=== PATIENT | female | born 1975 | race Caucasian/White ===

== ENCOUNTER → 2016-12-15 | Outpatient (CLI) | payer BC ==
[~2016-12-15] MED LIST: BUPRTAB51 PO; LORA1TAB13 PO; VILA1TAB2 PO
--- NOTE | 2016-12-18 15:02 | MAMMOGRAPHY REPORT ---
BILATERAL DIGITAL SCREENING MAMMOGRAM TOMOSYNTHESIS WITH CAD: 12/15/2016 CLINICAL HISTORY: Routine screening. Patient has no complaints. TECHNIQUE: Breast tomosynthesis in addition to standard 2D mammography was performed. Current study was also evaluated with a Computer Aided Detection (CAD) system. COMPARISON: Comparison is made to exams dated: 12/10/2014 mammogram and 12/15/2015 mammogram - [facility]. BREAST COMPOSITION: The tissue of both breasts is heterogeneously dense, which may obscure small mas ses. FINDINGS: No suspicious masses, calcifications, or areas of architectural distortion are noted in ei ther breast. There has been no significant interval change compared to prior exams. Scattered bilater al benign-appearing calcifications are not significantly changed. IMPRESSION: ACR BI-RADS CATEGORY 2: BENIGN There is no mammographic evidence of malignancy. A 1 year screening mammogram is recommended. The pa tient will receive written notification of the results. Approximately 10% of breast cancers are not detected with mammography. A negative mammographic report should not delay biopsy if a clinically suggestive mass is present. Chapis Kelly M.D. ah/:12/15/2016 15:37:06 [employer] Field Technician: Aubrie TORRES(R)(M), [facility] letter sent: Normal 1/2 BI-RADS Code: ACR BI-RADS Category 2: Benign
== END | disposition home or self-care (01) ==
LOC: C.MAMM 08:44
PROVIDERS: ATTEND Family Medicine
DX: Z12.31 Encounter for screening mammogram for malignant neoplasm of breast (principal)

== ENCOUNTER 2023-10-15 20:54 | Observation (INO) ==
[2023-10-15] MEDS: SODIUM CHLORIDE 0.9% 1,000 ML IV ONE (21:32)
[2023-10-15 21:42] LABS: Alanine Aminotransferase 8 U/L (7-52); Albumin Globulin Ratio 2.1 (0.9-2); Albumin Level 5.1 gm/dl (3.4-5.0); Alkaline Phosphatase 54 U/L (34-104); Anion Gap 8 (3-11); Aspartate Aminotransferase 14 U/L (13-39); BUN Creatinine Ratio 24.5 (10-20); Bilirubin,Total 0.4 mg/dl (0.2-1.0); Blood Urea Nitrogen 24 mg/dl (6-23); Calcium 9.5 mg/dl (8.6-10.3); Carbon Dioxide 27 mmol/L (21-32); Chloride 103 mmol/L (98-107); Creatinine Clr Calc Pharmacy 67.5 ml/min; Est GFR (African American) 78.5 ml/min; Est GFR (Non-African American) 67.7 ml/min; Globulin 2.4 gm/dl (2.5-4.0); Glucose 130 mg/dl (70-99(Fasting)); Magnesium 1.9 mg/dl (1.7-2.4); Potassium 3.6 mmol/L (3.5-5.1); Sodium 138 mmol/L (136-145); Total Protein 7.5 gm/dl (6.0-8.3)
[2023-10-15 21:44] LABS: Basophils # (auto) 0.09 K/uL (0.00-0.20); Basophils % (auto) 1.1 %; Eosinophils # (auto) 0.15 K/uL (0.00-0.50); Eosinophils % (auto) 1.9 %; Hematocrit (blood only) 42.6 % (37.0-47.0); Hemoglobin 14.5 g/dl (12.0-16.0); Immature Granulocytes # (auto) 0.02 K/uL (0.01-0.20); Immature Granulocytes % (auto) 0.3 %; Lymphocytes # (auto) 3.75 K/uL (1.20-3.40); Lymphocytes % (auto) 47.9 %; Mean Corpuscular Hemoglobin 29.4 pg (25.0-34.0); Mean Corpuscular Volume 86.4 fL (80.0-100.0); Mean Platelet Volume 9.6 fL (9.4-12.4); Monocytes # (auto) 0.38 K/uL (0.11-0.59); Monocytes % (auto) 4.9 %; Neutrophils # (auto) 3.44 K/uL (1.40-6.50); Neutrophils % (auto) 43.9 %; Platelet Count 276 K/uL (130-400); RDW Coefficient of Variation 11.6 % (11.5-14.5); RDW Standard Deviation 36.9 fL (36.4-46.3); Red Blood Count 4.93 M/uL (4.20-5.40); White Blood Count 7.83 K/ul (4.8-10.8)
[2023-10-15 21:48] LABS: Troponin I High Sensitivity < 2.3 pg/ml (0-14)
[2023-10-15 21:55] LABS: D Dimer < 190 ug/L FEU (0-500); Partial Thromboplastin Time 26 Seconds (21-31); Prothrombin Time 11.3 Seconds (9.0-12.0)
--- NOTE | 2023-10-15 22:20 | Emergency Department Note ---
Impression & Plan Sinus tachycardia, Heart palpitations ED Provider Note HISTORY OF PRESENT ILLNESS: Patient is a 48-year-old female presenting with tachycardia and hypertension. Patient reports that over the last 2 weeks she has been having intermittent episodes in which it feels like her heart is racing and she is having palpitations. Reports that she has stopped drinking caffeine in the last week because she thought that was a trigger. She states that the episodes of tachycardia occur at random. She reports has been unable to workout in the last week secondary to any minimal amount of exertion causing her heart rate to go to 150 and her to feel lightheaded. States that tonight while getting ready for bed she started having some left-sided chest pain and it felt like her heart was racing. Her smart watch told her heart rate was in the 150s and she took her blood pressure and noted it to be in the 170s systolic. She denies any DVT or PE history. Denies any recent medication changes. She took 1 mg of Ativan, but it did not seem to impact her heart rate. She does not feel overtly anxious. Denies any recent travel. She is not on any supplemental estrogen, such as hormone replacement or control. She denies any recent surgeries. She reports has been eating and drinking without issue. She denies any fevers, cough, abdominal pain, nausea, vomiting or dysuria. ROS: as above PHYSICAL EXAM: Constitutional: Patient appears in no acute distress. HENT: Head: Normocephalic and atraumatic. Eyes: EOMI, PERRL Mouth/Throat: Mucous membranes moist. Neck: Trachea midline. Neck supple. Cardiovascular: Tachycardic with regular rhythm. No murmurs, rubs or gallops. Intact distal pulses. Pulmonary/Chest: No respiratory distress. Breath sounds clear and equal bilaterally. No wheezes or rales. Abdominal: Abdomen soft, no tenderness, rebound or guarding. Musculoskeletal: No edema, tenderness or deformity noted. Skin: Warm and dry. No rash, erythema, pallor or cyanosis Psychiatric: Appropriate mood and affect for situation. Neurological: Alert and keenly responsive. CN II-XII grossly intact, moving all extremities equally and fully. MDM: - Vitals signs showed hypertension and tachycardia - History obtained via patient. History as above. - Chronic conditions affecting care: Anxiety disorder - Differential diagnoses include, but are not limited to: Electrolyte abnormality; pulmonary embolism; pneumonia; dysrhythmia; dehydration; ACS - Order placed for continuous cardiac monitoring. At this time, monitor showed rate of 111 bpm with normal sinus rhythm, per my interpretation. - External medical records reviewed. Primary care visit note dated 07/20/2023 was reviewed. Patient was seen for an acute visit for acute pharyngitis. - EKG interpreted by myself showed normal sinus rhythm. Rate tachycardic 154 bpm. QT 312. No acute ischemic changes - Laboratory workup interpreted by myself showed normal WBC; stable electrolytes; normal PT/INR; negative D-dimer; hyperglycemia (Glucose 130) with normal anion gap - CXR negative for pneumonia, per my interpretation - Patient given 1L NS with minimal improvement in her heart rate. She was given 5 mg IV Lopressor with improvement of her heart rate from 120s to the mid 90s. However, about 30 minutes later, the patient's tachycardia returned and she would alternate between 106 bpm to 130 bpm. Did discuss results with the patient. I do think she requires further workup for her tachycardia in the inpatient setting. She is not had any medication changes. She is never had an echocardiogram performed of her heart. - Discussion was had with showcase trimmer about patient's case and need for admission - Hospitalist consulted for admission - [facility] for further evaluation and management. 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 Other FHx: cancer FHx: heart disease Family history of high blood pressure No family history of adverse response to anesthesia No family history of bleeding disorder Denies family history of Ovarian cancer Prostate cancer Breast cancer Colorectal cancer Social History Smoking Status: Never smoker Second Hand Exposure: No; Do You Dip or Chew Tobacco: No; Hx Alcohol Use: No Hx Substance Use: No Preferred Language: Kinyarwanda Communication Ability: Effective Visual Impairment: No Limitations Hearing Ability: Normal Carpet Jack Required: No Beliefs That Will Affect Care: None marital status: Current Living Situation: Spouse and Family current occupational status: employed 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 @ [employer] How many Children do You have: 1 Feels Safe at Home: Yes Childhood Exposure to Second-Hand Smoke: No Diet: regular Diet Comment: regular caffeine: Yes during the past year weight has: remained stable Dental Care, Regularly: Yes Physical Activity Frequency: Daily Seatbelt Use: always Sunscreen Use: Yes Assistive Devices: None Allergies Allergies Allergy/AdvReac Type Severity Reaction Status Date / Time No Known Drug Allergies Allergy 0 Verified 07/20/23 10:32 banana AdvReac Mild N/V, ABD Verified 07/20/23 10:32 PAIN Home Meds Home Medications Medication Instructions Recorded Confirmed lorazepam 1 mg tablet (Ativan) 1 mg PO DAILY PRN Insomnia 11/18/17 07/20/23 bupropion HCl 150 mg 24 hr tablet, 300 mg PO QPM 12/20/20 07/20/23 extended release magnesium 250 mg tablet 250 mg PO .TODAY 02/11/23 07/20/23 Previous Rx's Medication Instructions Recorded scopolamine base 1 mg over 3 days 1 patch transdermal Q3D PRN nausea 08/14/22 transdermal patch and vomiting #10 ea omeprazole 20 mg capsule,delayed 20 mg PO DAILY #90 caps 02/12/23 release amoxicillin 500 mg tablet 500 mg PO Q12H 7 days #14 tabs 07/20/23 fluconazole 150 mg tablet 150 mg PO Q3D 2 doses #2 tabs 07/20/23 triamcinolone acetonide 0.1 % 1 applic topical BID #15 grams 07/20/23 topical cream Results & Data (ED) Vital Signs Vital Signs - 24 hr 10/15/23 20:57 10/15/23 21:00 10/15/23 21:15 Temperature 36.3 C L Temperature Source Temporal Artery Scan Pulse Rate 135 H 132 H Pulse Rate [Apical] 132 H Respiratory Rate 22 24 24 Respiratory Effort / Characteristics Non-Labored Spontaneous Respiratory Depth Normal Respiratory Pattern Regular Blood Pressure 153/88 H Blood Pressure [Left Arm] Blood Pressure [Left Radial Artery] 172/100 H Blood Pressure Mean 109 Blood Pressure Mean [Left Arm] Blood Pressure Mean [Left Radial Artery] 124 Pulse Oximetry 99 99 99 Oxygen Delivery Method Room Air Room Air Room Air Sepsis Recent Fever Within 48 Hours No Sepsis New/Unexplained Change in Mental Status No Sepsis Action Taken by Nursing No Action Required 10/15/23 21:19 10/15/23 21:24 10/15/23 21:31 Temperature Temperature Source Pulse Rate 130 H Pulse Rate [Apical] 129 H 111 H Respiratory Rate 20 18 Respiratory Effort / Characteristics Respiratory Depth Respiratory Pattern Blood Pressure Blood Pressure [Left Arm] 145/86 H Blood Pressure [Left Radial Artery] 132/98 Blood Pressure Mean Blood Pressure Mean [Left Arm] 105 Blood Pressure Mean [Left Radial Artery] 109 Pulse Oximetry 100 100 Oxygen Delivery Method Room Air Room Air Sepsis Recent Fever Within 48 Hours Sepsis New/Unexplained Change in Mental Status Sepsis Action Taken by Nursing 10/15/23 22:30 10/15/23 22:46 10/15/23 23:00 Temperature Temperature Source Pulse Rate 123 H 99 H Pulse Rate [Apical] 102 H Respiratory Rate 18 Respiratory Effort / Characteristics Respiratory Depth Respiratory Pattern Blood Pressure 140/97 153/84 H Blood Pressure [Left Arm] 130/89 Blood Pressure [Left Radial Artery] Blood Pressure Mean Blood Pressure Mean [Left Arm] 102 Blood Pressure Mean [Left Radial Artery] Pulse Oximetry 98 Oxygen Delivery Method Room Air Sepsis Recent Fever Within 48 Hours Sepsis New/Unexplained Change in Mental Status Sepsis Action Taken by Nursing Laboratory Data 10/15/23 21:10 10/15/23 21:10 Lab Results 10/15/23 Range/Units 21:10 WBC 7.83 (4.8-10.8) K/ul RBC 4.93 (4.20-5.40) M/uL Hgb 14.5 (12.0-16.0) g/dl Hct 42.6 (37.0-47.0) % MCV 86.4 (80.0-100.0) fL MCH 29.4 (25.0-34.0) pg MCHC 34.0 (32.0-36.0) g/dL RDW Std Deviation 36.9 (36.4-46.3) fL RDW Coeff of Olivia 11.6 (11.5-14.5) % Plt Count 276 (130-400) K/uL MPV 9.6 (9.4-12.4) fL Immature Gran % (Auto) 0.3 % Neut % (Auto) 43.9 % Lymph % (Auto) 47.9 % Colbert % (Auto) 4.9 % Eos % (Auto) 1.9 % Baso % (Auto) 1.1 % Neut # (Auto) 3.44 (1.40-6.50) K/uL Lymph # (Auto) 3.75 H (1.20-3.40) K/uL Colbert # (Auto) 0.38 (0.11-0.59) K/uL Eos # (Auto) 0.15 (0.00-0.50) K/uL Baso # (Auto) 0.09 (0.00-0.20) K/uL Immature Gran # (Auto) 0.02 (0.01-0.20) K/uL PT 11.3 (9.0-12.0) Seconds INR 1.0 (0.9-1.1) APTT 26 (21-31) Seconds PTT Ratio 1.0 D-Dimer < 190 (0-500) ug/L FEU Sodium 138 (136-145) mmol/L Potassium 3.6 (3.5-5.1) mmol/L Chloride 103 (98-107) mmol/L Carbon Dioxide 27 (21-32) mmol/L Anion Gap 8 (3-11) BUN 24 H (6-23) mg/dl Creatinine 0.98 (0.6-1.2) mg/dl Est Cr Clr Drug Dosing 67.5 ml/min Est GFR ( Amer) 78.5 ml/min Est GFR (Non-Af Amer) 67.7 ml/min BUN/Creatinine Ratio 24.5 H (10-20) Glucose 130 H (70-99(Fasting)) mg/dl Calcium 9.5 (8.6-10.3) mg/dl Magnesium 1.9 (1.7-2.4) mg/dl Total Bilirubin 0.4 (0.2-1.0) mg/dl AST 14 (13-39) U/L ALT 8 (7-52) U/L Alkaline Phosphatase 54 (34-104) U/L Troponin I High Sens < 2.3 (0-14) pg/ml Total Protein 7.5 (6.0-8.3) gm/dl Albumin 5.1 H (3.4-5.0) gm/dl Globulin 2.4 L (2.5-4.0) gm/dl Albumin/Globulin Ratio 2.1 H (0.9-2) Administered Medications Discontinued Medications Sodium Chloride (Nss) 1,000 mls @ 999 mls/hr IV .Q1H1M ONE Stop: 10/15/23 22:25 Last Infusion: 10/15/23 22:38 Dose: Infused Documented By: Admin: 10/15/23 21:32 Dose: 999 mls/hr Documented By: Metoprolol Tartrate (Metoprolol Tartrate 1 Mg/Ml Vial) 5 mg IV NOW STA Stop: 10/15/23 22:24 Last Admin: 10/15/23 22:30 Dose: 5 mg Documented By: DOMINGA Discharge Plan Visit Data Chief Complaint: Cardiac Assessment Stated Complaint: TACHYCARDIA, HYPERTENTION ED Provider: Loan Valiente Discharge Problem: Sinus tachycardia, Heart palpitations Forms Stand Alone Forms: [facility] Prescriptions Prescriptions: No Action omeprazole 20 mg capsule,delayed release(DR/EC) 20 mg PO DAILY Qty: 90 4RF Rx Instructions: 1 tab daily 30-min prior to first meal scopolamine base 1 mg over 3 days patch 3 day 1 patch transdermal Q3D PRN (Reason: nausea and vomiting) Qty: 10 1RF triamcinolone acetonide 0.1 % cream 1 applic topical BID Qty: 15 1RF Rx Instructions: Use for no longer than 2 wks. amoxicillin 500 mg tablet 500 mg PO Q12H 7 Days Qty: 14 0RF fluconazole 150 mg tablet 150 mg PO Q3D 0 Days Qty: 2 0RF Rx Instructions: Take one tab once, repeat in 3 days if still symptomatic. lorazepam [Ativan] 1 mg tablet 1 mg PO DAILY PRN (Reason: Insomnia) bupropion HCl 150 mg tablet extended release 24 hr 300 mg PO QPM Rx Instructions: Patient stated she only takes 300 MG magnesium 250 mg Tablet 250 mg PO .TODAY Referrals Referrals: Alisha Mccurdy MD [Primary Care Provider] -
[2023-10-15] MEDS: METOPROLOL TARTRATE 1 MG/ML VIAL IV STA (22:30)
[2023-10-16] MEDS ORDERED: METOPROLOL TARTRATE 1 MG/ML VIAL IV PRN (00:33)
--- NOTE | 2023-10-16 00:35 | History & Physical Report ---
Date of Service October 16, 2023 Assessment & Plan (1) Heart palpitations: (2) Sinus tachycardia: (3) Generalized anxiety disorder: (4) Migraines: (5) Depression with anxiety: (6) GERD (gastroesophageal reflux disease): Plan Heart palpitations/sinus tachycardia/near syncope- The patient will be admitted to telemetry for serial cardiac enzymes, serial EKG's, cardiac rhythm monitoring and a 2-D echocardiogram with Dopplers. Heart rate noted to be a maximum of 154 while in the ED. She did receive Lopressor 5 mg IV, and heart rate for the most part remained in the upper 90s to lower 100s afterwards Optimize potassium of 3.6 with Klor-Con 40 mEq p.o. Optimize magnesium 1.9 with mag sulfate 1 g IV Repeat laboratories in a.m. Of note, patient's father has a history of atrial fibrillation Patient reports being told in the past that she had mitral valve prolapse Start aspirin 81 mg every morning Lopressor 5 mg IV every 4 hours as needed for heart rate greater than 120 Consult cardiology GERD- Continue omeprazole/pantoprazole Anxiety with depression- Continue bupropion, and lorazepam History of Present Illness Chief Complaint: The patient presents to the emergency department with complaint of 2 weeks of every other day palpitations, where in particular, if she tries to do any type of physical activity, her heart rate will increase up to 150 bpm. She presents to the emergency department today due to the palpitations being more intense, and lasting longer than usual. She reports that palpitations typically may last up to an hour on average. She has felt lightheaded and dizzy with these symptoms, but has not actually passed out. Primary Care Provider: Alisha Mccurdy MD The patient is a 48-year-old female with a past medical history including heart palpitations, sinus tachycardia, TMJ, migraines, generalized anxiety disorder, and GERD. She presents to the emergency department with worsening intensity and duration of palpitations with noted increased heart rate up to 150, averaging every other day. Allergies Allergy/AdvReac Type Severity Reaction Status Date / Time No Known Drug Allergies Allergy 0 Verified 07/20/23 10:32 banana AdvReac Mild N/V, ABD Verified 07/20/23 10:32 PAIN Home Medications Medication Instructions Recorded Confirmed Type lorazepam 1 mg tablet (Ativan) 1 mg PO DAILY PRN Insomnia 11/18/17 07/20/23 History bupropion HCl 150 mg 24 hr tablet, 300 mg PO QPM 12/20/20 07/20/23 History extended release scopolamine base 1 mg over 3 days 1 patch transdermal Q3D PRN nausea 08/14/22 07/20/23 Rx transdermal patch and vomiting #10 ea magnesium 250 mg tablet 250 mg PO .TODAY 02/11/23 07/20/23 History omeprazole 20 mg capsule,delayed 20 mg PO DAILY #90 caps 02/12/23 07/20/23 Rx release amoxicillin 500 mg tablet 500 mg PO Q12H 7 days #14 tabs 07/20/23 07/20/23 Rx fluconazole 150 mg tablet 150 mg PO Q3D 2 doses #2 tabs 07/20/23 07/20/23 Rx triamcinolone acetonide 0.1 % 1 applic topical BID #15 grams 07/20/23 07/20/23 Rx topical cream Past Med/Surg History Problem List (Updated 10/16/23 @ 02:17 by Hany Singh MD) GERD (gastroesophageal reflux disease) Depression with anxiety Heart palpitations (Acute) Sinus tachycardia (Acute) Oropharyngeal lesion TMJ (temporomandibular joint syndrome) Carotid artery disorder fusiform dilation of the left carotid 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 Mechanic Required: No Beliefs That Will Affect Care: None marital status: Current Living Situation: Spouse and Family current occupational status: employed 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 @ [employer] How many Children do You have: 1 Feels Safe at Home: Yes Childhood Exposure to Second-Hand Smoke: No Diet: regular Diet Comment: regular caffeine: Yes during the past year weight has: remained stable Dental Care, Regularly: Yes Physical Activity Frequency: Daily Seatbelt Use: always Sunscreen Use: Yes Assistive Devices: None Review of Systems Review of Systems: The patient denies cough, lower extremity swelling, sore throat, fevers, chills, sweats, nausea, vomiting, diarrhea , constipation, abdominal pain, pelvic pain, blood in urine or stool, dysuria, urinary frequency or urgency, headache, memory loss, loss of consciousness, rash, abnormal bruising or bleeding, imbalance, focal or generalized weakness, numbness or tingling in arms or legs, generalized arthralgias or myalgias, back or neck pain, or night sweats. The review of systems is otherwise negative other than for that already noted above, and at least 10 systems have been reviewed. Physical Exam Physical Exam: The patient is awake, alert and oriented 3, well developed and well nourished, normocephalic and atraumatic, lying in bed and in no acute distress. HEENT--PERRL, EOMI, mucous membranes and oropharynx mildly dry. Neck--supple. No JVD. No bruits. Thyroid normal, trachea midline, no adenopathy. Heart--tachycardic and regular. Systolic murmur. No rubs or gallops. Lungs--clear bilaterally, no respiratory distress, no accessory muscle use. Abdomen--normal bowel sounds and soft. Nontender. Nondistended, no hernias or masses, no organomegaly. Extremities--no cyanosis or clubbing. No edema. Dermatologic--normal skin turgor, normal color, no abnormal lymph nodes, no rash. Neurologic--cranial nerves II through XII grossly intact. Rheumatologic--normal range of motion. Psychiatric--normal affect. Results & Data Results & Data Vital Signs (Past 12 Hours) Vital Signs Temp Pulse Pulse Resp BP BP BP 10/15/23 23:30 104 H 18 134/105 H 10/15/23 23:00 102 H 18 130/89 10/15/23 22:46 99 H 153/84 H 10/15/23 22:30 123 H 140/97 10/15/23 21:31 111 H 18 145/86 H 10/15/23 21:24 129 H 20 132/98 10/15/23 21:19 130 H 10/15/23 21:15 132 H 24 172/100 H 10/15/23 21:00 132 H 24 10/15/23 20:57 36.3 C L 135 H 22 153/88 H Pulse Ox O2 Del Method 10/15/23 23:30 99 10/15/23 23:00 98 Room Air 10/15/23 22:46 10/15/23 22:30 10/15/23 21:31 100 Room Air 10/15/23 21:24 100 Room Air 10/15/23 21:19 10/15/23 21:15 99 Room Air 10/15/23 21:00 99 Room Air 10/15/23 20:57 99 Room Air Laboratory Results Laboratory Results WBC 7.83 K/ul (4.8-10.8) 10/15/23 21:10 RBC 4.93 M/uL (4.20-5.40) 10/15/23 21:10 Hgb 14.5 g/dl (12.0-16.0) 10/15/23 21:10 Hct 42.6 % (37.0-47.0) 10/15/23 21:10 MCV 86.4 fL (80.0-100.0) 10/15/23 21:10 MCH 29.4 pg (25.0-34.0) 10/15/23 21:10 MCHC 34.0 g/dL (32.0-36.0) 10/15/23 21:10 RDW Std Deviation 36.9 fL (36.4-46.3) 10/15/23 21:10 RDW Coeff of Olivia 11.6 % (11.5-14.5) 10/15/23 21:10 Plt Count 276 K/uL (130-400) 10/15/23 21:10 MPV 9.6 fL (9.4-12.4) 10/15/23 21:10 Immature Gran % (Auto) 0.3 % 10/15/23 21:10 Neut % (Auto) 43.9 % 10/15/23 21:10 Lymph % (Auto) 47.9 % 10/15/23 21:10 Bailey % (Auto) 4.9 % 10/15/23 21:10 Eos % (Auto) 1.9 % 10/15/23 21:10 Baso % (Auto) 1.1 % 10/15/23 21:10 Neut # (Auto) 3.44 K/uL (1.40-6.50) 10/15/23 21:10 Lymph # (Auto) 3.75 K/uL (1.20-3.40) H 10/15/23 21:10 Bailey # (Auto) 0.38 K/uL (0.11-0.59) 10/15/23 21:10 Eos # (Auto) 0.15 K/uL (0.00-0.50) 10/15/23 21:10 Baso # (Auto) 0.09 K/uL (0.00-0.20) 10/15/23 21:10 Immature Gran # (Auto) 0.02 K/uL (0.01-0.20) 10/15/23 21:10 PT 11.3 Seconds (9.0-12.0) 10/15/23 21:10 INR 1.0 (0.9-1.1) 10/15/23 21:10 APTT 26 Seconds (21-31) 10/15/23 21:10 PTT Ratio 1.0 10/15/23 21:10 D-Dimer < 190 ug/L FEU (0-500) 10/15/23 21:10 Sodium 138 mmol/L (136-145) 10/15/23 21:10 Potassium 3.6 mmol/L (3.5-5.1) 10/15/23 21:10 Chloride 103 mmol/L (98-107) 10/15/23 21:10 Carbon Dioxide 27 mmol/L (21-32) 10/15/23 21:10 Anion Gap 8 (3-11) 10/15/23 21:10 BUN 24 mg/dl (6-23) H 10/15/23 21:10 Creatinine 0.98 mg/dl (0.6-1.2) 10/15/23 21:10 Est Cr Clr Drug Dosing 67.5 ml/min 10/15/23 21:10 Est GFR ( Amer) 78.5 ml/min 10/15/23 21:10 Est GFR (Non-Af Amer) 67.7 ml/min 10/15/23 21:10 BUN/Creatinine Ratio 24.5 (10-20) H 10/15/23 21:10 Glucose 130 mg/dl (70-99(Fasting)) H 10/15/23 21:10 Calcium 9.5 mg/dl (8.6-10.3) 10/15/23 21:10 Magnesium 1.9 mg/dl (1.7-2.4) 10/15/23 21:10 Total Bilirubin 0.4 mg/dl (0.2-1.0) 10/15/23 21:10 AST 14 U/L (13-39) 10/15/23 21:10 ALT 8 U/L (7-52) 10/15/23 21:10 Alkaline Phosphatase 54 U/L (34-104) 10/15/23 21:10 Troponin I High Sens < 2.3 pg/ml (0-14) 10/15/23 21:10 Total Protein 7.5 gm/dl (6.0-8.3) 10/15/23 21:10 Albumin 5.1 gm/dl (3.4-5.0) H 10/15/23 21:10 Globulin 2.4 gm/dl (2.5-4.0) L 10/15/23 21:10 Albumin/Globulin Ratio 2.1 (0.9-2) H 10/15/23 21:10 Code Status & VTE Plan Code Status Full code VTE Prophylaxis Plan VTE Prophylaxis will be ordered: Yes PG Care Time/CCT Total # of Minutes Spent Total Time Spent with Patient: Total time spent is greater than 50% in coordination of care (as documented) at patient's floor/unit and/or counseling patient: Coding Level of Care Code 38864 INT INP/OBS CARE 3/75MIN Diagnoses Heart palpitations R00.2 Sinus tachycardia R00.0 Generalized anxiety disorder F41.1 Migraines G43.909 Depression with anxiety F41.8 GERD (gastroesophageal reflux disease) K21.9
[2023-10-16] MEDS: POTASSIUM CHLORIDE CRTAB 20 MEQ TABCR PO STA (01:43)
[2023-10-16] MEDS: NSS + 20MEQ KCL 20 MEQ/1,000 ML BAG IV SCH (01:43)
[2023-10-16] MEDS: MAGNESIUM SULFATE / D5W 1 GM/100 ML BAG IV ONE (01:43)
[2023-10-16 02:00] VITALS: RESP 18
[2023-10-16] MEDS ORDERED: LORazepam 1 MG TAB PO PRN (02:13)
[2023-10-16 02:29] VITALS: O2SAT 99
--- NOTE | 2023-10-16 06:55 | XRay Report ---
XR chest 1V not portable CLINICAL HISTORY: Chest pain, nonspecific COMPARISON STUDY: Chest radiograph January 03, 2023. FINDINGS: Lung volumes are normal. Lungs are clear. There is no pneumothorax or pleural effusion. Car diac size is normal. Mediastinal contours are normal. There is no evidence for pulmonary edema. IMPRESSION: No acute cardiopulmonary findings. ACT 112: Negative or not required by law. Electronically signed by: Modesto Valera M.D. 10/16/2023 6:53 AM
[2023-10-16 07:09] LABS: Basophils # (auto) 0.04 K/uL (0.00-0.20); Basophils % (auto) 0.8 %; Eosinophils # (auto) 0.11 K/uL (0.00-0.50); Eosinophils % (auto) 2.1 %; Hematocrit (blood only) 36.5 % (37.0-47.0); Immature Granulocytes # (auto) 0.01 K/uL (0.01-0.20); Immature Granulocytes % (auto) 0.2 %; Lymphocytes # (auto) 2.35 K/uL (1.20-3.40); Lymphocytes % (auto) 45.6 %; Mean Corpuscular Hemoglobin 29.1 pg (25.0-34.0); Mean Corpuscular Hgb Conc 32.9 g/dL (32.0-36.0); Mean Corpuscular Volume 88.4 fL (80.0-100.0); Mean Platelet Volume 9.6 fL (9.4-12.4); Monocytes # (auto) 0.35 K/uL (0.11-0.59); Monocytes % (auto) 6.8 %; Neutrophils # (auto) 2.29 K/uL (1.40-6.50); Neutrophils % (auto) 44.5 %; Platelet Count 198 K/uL (130-400); RDW Coefficient of Variation 11.7 % (11.5-14.5); RDW Standard Deviation 37.9 fL (36.4-46.3); Red Blood Count 4.13 M/uL (4.20-5.40); White Blood Count 5.15 K/ul (4.8-10.8)
[2023-10-16 07:22] LABS: BUN Creatinine Ratio 19.2 (10-20); Calcium 8.2 mg/dl (8.6-10.3); Creatinine Clr Calc Pharmacy 90.7 ml/min; Est GFR (African American) 112.1 ml/min; Est GFR (Non-African American) 96.7 ml/min
[2023-10-16 07:23] VITALS: BP 128/74; TEMP 98.1
[2023-10-16] MEDS: ACETAMINOPHEN 325 MG TAB PO PRN (08:03)
[2023-10-16] MEDS: ASPIRIN 81 MG ECTAB PO SCH (08:04)
[2023-10-16] MEDS: ONDANSETRON INJ 2 MG/ML 2 ML VIAL IV PRN (08:26)
--- NOTE | 2023-10-16 10:06 | Cardiology Consultation ---
Date of Consultation October 16, 2023 Assessment & Plan (1) Sinus tachycardia: (2) Heart palpitations: Plan Mrs. Wolf is a 48 year old female with a history of Migraine Headaches, GERD, Depression, and Generalized Anxiety Disorder who presented to the ER yesterday complaining of tachy-palpitations which were intermittently present over the preceding 2 weeks. She was noted to be in a sinus tachycardia at 154 bpm. Patient can not identify any triggering events that caused her heart to start racing -- she was in her usual state of health when her tachy-palpitations had their onset. She did not have any preceding illnesses, change in diet, unusual stress or anxiety, or changes in body weight. But now it seems that every time she does even mild activity her heart rate goes up rapidly and can stay up for several minutes up to an hour. Patient does have a sensation lightheadedness when her heart is racing but she has not had any syncopal episodes. She denies any associated symptoms otherwise. She specifically denies any associated nausea, vomiting, diaphoresis, dyspnea, or chest pain. Patient did take a lorazepam but she is uncertain if that helped her heart rate come down or not. Because of her heart racing, she has not been exercising routinely. She normally exercises on a daily basis with both strength training and she uses her Peloton. Her chest x-ray 10/15/23 was unremarkable. Serum potassium level is 3.6 mmol/L on admission, it is now up to 4.0 mmol/L, BUN 14 mg/dL, creatinine 0.73 mg/dL, blood sugar 96 mg/dL. Hemoglobin 12.0 g/dL, hematocrit is 36.5%. TSH and T4 are pending. Her high sensitivity troponin I was immeasurable at < 2.3 pg/mL. Her total cholesterol is 179 mg/dL with an LDL of 104 mg/dL and an HDL 61 mg/dL. I have reassured the patient that she has been in a sinus mechanism since being hospitalized, and she has not had any truly "abnormal rhythms. We discussed various causes for sinus tachycardia, and I suspect that anxiety is playing a role in her tachycardia. As mentioned, TSH in T4 are pending, so we need to rule out a hyperthyroid state. Patient's echocardiogram shows normal LV systolic function, LVEF is 60%. We recommend the followin. Begin Lopressor 25 mg b.i.d. 2. Have patient walk in the hallways and assess her heart rate response. 3. Following discharge, resume usual exercise program. Thank you for asking us to see this patient in consultation. We will be happy to follow-up with her as an outpatient. Patient agrees with this plan. History of Present Illness Reason for Consultation: -- Supraventricular Tachycardia. -- Sinus Tachycardia. Requesting Physician: Elvin Hester MD Attending Physician: Geoffrey Boyle MD History of Present Illness Mrs. Wolf is a 48 year old female with a history of Migraine Headaches, GERD, Depression, and Generalized Anxiety Disorder who presented to the ER yesterday complaining of tachy-palpitations which were intermittently present over the preceding 2 weeks. She was noted to be in a sinus tachycardia at 154 bpm. Patient can not identify any triggering events that caused her heart start racing -- she was in her usual state of health when they had her onset. She did not have any preceding illness, change in diet, unusual stress or anxiety, or changes in body weight. But now it seems that every time she does even mild activity her heart rate goes up rapid and can stay up for several minutes up to an hour. Patient does have a sensation lightheadedness when her heart is racing but she has not had any syncopal episodes. She denies any associated symptoms otherwise. She specifically denies any associated nausea, vomiting, diaphoresis, dyspnea, or chest pain. Because of her heart racing, she has not been exercising routinely. She normally exercises on a daily basis with both strength training and she uses her Peloton. Her chest x-ray was unremarkable. Serum potassium level is 3.6 mmol/L on admission, it is now up to 4.0 mmol/L, BUN 14 mg/dL, creatinine 0.73 mg/dL, blood sugar 96 mg/dL. Hemoglobin 12.0 g/dL, hematocrit is 36.5%. TSH and T4 are pending. Her high sensitivity troponin I was immeasurable at < 2.3 pg/mL. Her total cholesterol is 179 mg/dL with an LDL of 104 mg/dL and an HDL 61 mg/dL. Social History: -- Patient is and lives with her in [place]. 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 -- She has 1 child. -- Life-long non-smoker. -- She exercises daily including strength training and cardio. Family History: -- Significant for hypertension. -- No family history of premature CAD or sudden cardiac . Allergies Allergy/AdvReac Type Severity Reaction Status Date / Time No Known Drug Allergies Allergy 0 Verified 07/20/23 10:32 banana AdvReac Mild N/V, ABD Verified 10/16/23 10:23 PAIN Home Medications Medication Instructions Recorded Confirmed Type bupropion HCl 150 mg 24 hr tablet, 300 mg PO QPM 12/20/20 10/16/23 History extended release magnesium 250 mg tablet 250 mg PO DAILY 02/11/23 10/16/23 History omeprazole 20 mg capsule,delayed 20 mg PO DAILY #90 caps 02/12/23 10/16/23 Rx release lorazepam 0.5 mg tablet 1 mg PO DAILY 10/16/23 10/16/23 History Patient History Medical History Anxiety Surgical History History of colonoscopy History of wisdom tooth extraction Hx of LASIK History of tonsillectomy Family History Father Kidney disease Hypertension Testicular cancer Sister Hypertension Mother Fibromyalgia Daughter Leukemia Sister Hypertension Sister No problems noted. Other FHx: cancer FHx: heart disease Family history of high blood pressure No family history of adverse response to anesthesia No family history of bleeding disorder Denies family history of Ovarian cancer Prostate cancer Breast cancer Colorectal cancer Social History Smoking Status: Never smoker Second Hand Exposure: No; Do You Dip or Chew Tobacco: No; Hx Alcohol Use: No Hx Substance Use: No Preferred Language: Divehi Communication Ability: Effective Visual Impairment: No Limitations Hearing Ability: Normal Moving Picture Producer Required: No Beliefs That Will Affect Care: None marital status: Current Living Situation: Spouse current occupational status: employed 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 Physical Exam Physical Exam: Blood pressure is 128/74. GENERAL: Patient in no acute distress. HEENT: Head is atraumatic, normocephalic. EOM's intact. Facies symmetric. No perioral cyanosis. NECK: No JVD. JVP is not elevated. Carotid upstrokes are + 2 bilaterally without bruits. CHEST/LUNGS: Clear to auscultation throughout all lung ann. No wheezes, rales, or crackles. CVS: S1 and S2 are regular at 98 bpm without murmurs, gallops, or rubs. PMI is nondisplaced. No lifts, heaves, or thrills. No abdominal aortic or renal bruits. ABDOMINAL EXAM: Bowel sounds are present. EXTREMITIES: No clubbing or cyanosis. No edema. Intact radial pulses bilaterally. NEUROLOGIC EXAM: Patient is awake, alert, and oriented. Pleasant and cooperative. Answers questions appropriately. Speech is clear. EKG 10/15/22: -- Sinus tachycardia at 102 bpm. PREANALYTICS TEAM LEAD: -- Normal sinus rhythm in the 80s and 90 s overnight. Results & Data Vital Signs (Past 12 Hours) Vital Signs Temp Pulse Pulse Resp BP BP Pulse Ox 10/16/23 07:21 36.7 C 97 H 18 128/74 99 10/16/23 07:00 76 10/16/23 02:23 36.8 C 99 H 18 130/83 99 10/16/23 01:33 101 H 18 97 10/16/23 01:30 97 H 18 123/85 97 10/16/23 01:19 100 H 10/16/23 01:00 107 H 18 138/86 97 10/15/23 23:30 104 H 18 134/105 H 99 10/15/23 23:00 102 H 18 130/89 98 10/15/23 22:46 99 H 153/84 H 10/15/23 22:30 123 H 140/97 O2 Del Method 10/16/23 07:21 Room Air 10/16/23 07:00 10/16/23 02:23 Room Air 10/16/23 01:33 Room Air 10/16/23 01:30 10/16/23 01:19 10/16/23 01:00 10/15/23 23:30 10/15/23 23:00 Room Air 10/15/23 22:46 10/15/23 22:30 Laboratory Results Laboratory Results - last 24 hr 10/15/23 10/16/23 10/16/23 21:10 06:49 08:50 WBC 7.83 5.15 RBC 4.93 4.13 L Hgb 14.5 12.0 Hct 42.6 36.5 L MCV 86.4 88.4 MCH 29.4 29.1 MCHC 34.0 32.9 RDW Std Deviation 36.9 37.9 RDW Coeff of Olivia 11.6 11.7 Plt Count 276 198 MPV 9.6 9.6 Immature Gran % (Auto) 0.3 0.2 Neut % (Auto) 43.9 44.5 Lymph % (Auto) 47.9 45.6 Edmonson % (Auto) 4.9 6.8 Eos % (Auto) 1.9 2.1 Baso % (Auto) 1.1 0.8 Neut # (Auto) 3.44 2.29 Lymph # (Auto) 3.75 H 2.35 Edmonson # (Auto) 0.38 0.35 Eos # (Auto) 0.15 0.11 Baso # (Auto) 0.09 0.04 Immature Gran # (Auto) 0.02 0.01 PT 11.3 INR 1.0 APTT 26 PTT Ratio 1.0 D-Dimer < 190 Sodium 138 141 Potassium 3.6 4.0 Chloride 103 112 H Carbon Dioxide 27 25 Anion Gap 8 4 BUN 24 H 14 Creatinine 0.98 0.73 Est Cr Clr Drug Dosing 67.5 90.7 Est GFR ( Amer) 78.5 112.1 Est GFR (Non-Af Amer) 67.7 96.7 BUN/Creatinine Ratio 24.5 H 19.2 Glucose 130 H 96 Calcium 9.5 8.2 L Phosphorus 4.0 Magnesium 1.9 Total Bilirubin 0.4 AST 14 ALT 8 Alkaline Phosphatase 54 Troponin I High Sens < 2.3 Total Protein 7.5 Albumin 5.1 H 4.0 Globulin 2.4 L Albumin/Globulin Ratio 2.1 H TSH Free T4 SARS-CoV-2 RNA (RT-PCR) Pending 10/16/23 09:33 WBC RBC Hgb Hct MCV MCH MCHC RDW Std Deviation RDW Coeff of Olivia Plt Count MPV Immature Gran % (Auto) Neut % (Auto) Lymph % (Auto) Edmonson % (Auto) Eos % (Auto) Baso % (Auto) Neut # (Auto) Lymph # (Auto) Edmonson # (Auto) Eos # (Auto) Baso # (Auto) Immature Gran # (Auto) PT INR APTT PTT Ratio D-Dimer Sodium Potassium Chloride Carbon Dioxide Anion Gap BUN Creatinine Est Cr Clr Drug Dosing Est GFR ( Amer) Est GFR (Non-Af Amer) BUN/Creatinine Ratio Glucose Calcium Phosphorus Magnesium Total Bilirubin AST ALT Alkaline Phosphatase Troponin I High Sens Total Protein Albumin Globulin Albumin/Globulin Ratio TSH Pending Free T4 Pending SARS-CoV-2 RNA (RT-PCR) Diagnostic Findings CXR 10/15/23: FINDINGS: Lung volumes are normal. Lungs are clear. There is no pneumothorax or pleural effusion. Cardiac size is normal. Mediastinal contours are normal. There is no evidence for pulmonary edema. IMPRESSION: No acute cardiopulmonary findings. Medications Administered Medication List Acetaminophen (Acetaminophen 325 Mg Tab) 650 mg PO Q4H PRN PRN Reason: Pain or Fever Stop: 11/15/23 02:12 Last Admin: 10/16/23 08:03 Dose: 650 mg Documented By: MORE Aspirin (Aspirin 81 Mg Ectab) 81 mg PO QAM CANELO Stop: 11/15/23 08:59 Last Admin: 10/16/23 08:04 Dose: 81 mg Documented By: MORE Potassium Chloride/Sodium Chloride (Normal Saline W/20 Meq Kcl) 20 meq in 1,000 mls @ 100 mls/hr IV .Q10H CANELO Stop: 10/16/23 10:29 Last Admin: 10/16/23 01:43 Dose: 100 mls/hr Documented By: Ondansetron HCl (Ondansetron Inj 2 Mg/Ml 2 Ml Vial) 4 mg IV Q6H PRN PRN Reason: Nausea And Vomiting Stop: 11/15/23 08:13 Last Admin: 10/16/23 08:26 Dose: 4 mg Documented By: MORE Discontinued Medications Sodium Chloride (Nss) 1,000 mls @ 999 mls/hr IV .Q1H1M ONE Stop: 10/15/23 22:25 Last Infusion: 10/15/23 22:38 Dose: Infused Documented By: Admin: 10/15/23 21:32 Dose: 999 mls/hr Documented By: Magnesium Sulfate/Dextrose (Magnesium Sulfate / D5w) 1 gm in 100 mls @ 50 mls/hr IV ONE ONE Stop: 10/16/23 02:19 Last Infusion: 10/16/23 04:08 Dose: Infused Documented By: Admin: 10/16/23 01:43 Dose: 50 mls/hr Documented By: Metoprolol Tartrate (Metoprolol Tartrate 1 Mg/Ml Vial) 5 mg IV NOW STA Stop: 10/15/23 22:24 Last Admin: 10/15/23 22:30 Dose: 5 mg Documented By: DOMINGA Potassium Chloride (Potassium Chloride Crtab 20 Meq Tabcr) 40 meq PO NOW STA Stop: 10/16/23 00:20 Last Admin: 10/16/23 01:43 Dose: 40 meq Documented By: PG Care Time/CCT Total # of Minutes Spent Total Time Spent with Patient: Total time spent is greater than 50% in coordination of care (as documented) at patient's floor/unit and/or counseling patient:35 [place] [address] IN/OBS CONSULT LVL 3,45M Patient Type New Medical Decision Making Moderate Complexity Diagnoses Sinus tachycardia R00.0 Heart palpitations R00.2 Time Spent (min) 48
[2023-10-16 10:25] LABS: Thyroid Stimulating Hormone 1.927 uIu/ml (0.300-4.500)
[2023-10-16 10:27] LABS: T4 Free Thyroxine 1.05 ng/dl (0.61-1.60)
[2023-10-16] MEDS: METOPROLOL TARTRATE 25 MG TAB PO SCH (10:35)
--- NOTE | 2023-10-16 10:53 | XCELERA ---
[id number]
--- NOTE | 2023-10-16 11:54 | Electrocardiogram Report ---
Test Reason : Blood Pressure : */* mmHG Vent. Rate : 154 BPM Atrial Rate : 154 BPM P-R Int : 128 ms QRS Dur : 90 ms QT Int : 312 ms P-R-T Axes : -20 151 -7 degrees QTcB Int : 499 ms Sinus tachycardia Right axis deviation Low voltage QRS Abnormal ECG When compared with ECG of 10-Feb-2023 23:40, QRS axis Shifted right Confirmed by Geoffrey Boyle ([id number]) on 10/16/2023 11:53:46 AM Referred By: REFERRED SELF Confirmed By: Geoffrey Boyle
--- NOTE | 2023-10-16 12:02 | Electrocardiogram Report ---
Test Reason : Blood Pressure : */* mmHG Vent. Rate : 102 BPM Atrial Rate : 102 BPM P-R Int : 150 ms QRS Dur : 92 ms QT Int : 352 ms P-R-T Axes : 67 240 35 degrees QTcB Int : 458 ms Sinus tachycardia Possible Left atrial enlargement Indeterminate axis Incomplete right bundle branch block Nonspecific T wave abnormality Abnormal ECG When compared with ECG of 15-Oct-2023 21:03, (unconfirmed) Vent. rate has decreased by [address] no longer depressed in Lateral leads Nonspecific T wave abnormality, improved in Inferior leads Nonspecific T wave abnormality no longer evident in Lateral leads Confirmed by Geoffrey Boyle ([id number]) on 10/16/2023 12:02:29 PM Referred By: REFERRED SELF Confirmed By: Geoffrey Boyle
[2023-10-16 14:16] VITALS: PULSE 66
--- NOTE | 2023-10-16 16:53 | Discharge Summary ---
Discharge Summary Date of Service date of admission - October 16, 2023 date of discharge - October 16, 2023 Principal Dx & Hospital Course #1 = Principal Diagnosis (1) Sinus tachycardia: During her brief stay the following were normal - * CBC - hemoglobin 14.5 * TSH - 1.9 * COVID testing was negative * Echo was normal * Troponin was undetectable * Telemetry - no arrhythmia seen; a few episodes of sinus tachycardia were seen only At no point was she having pain, severe anxiety, panic attacks, etc. Ms Wolf was seen in consult by [facility]. She was asked to take metoprolol tartrate 25mg BID. She was encouraged to continue to monitor her HRs at home. She will f/u with [facility] shortly after discharge for recheck. Consideration will be made to extended outpatient monitoring if needed. (2) Heart palpitations: 2nd sinus tachycardia No other abnormal heart rhythms were seen while here Specifically, no a.fib, no a.flutter, no SVT or a.tach, etc were seen (3) Depression with anxiety: Cont wellbutrin 300mg daily Cont ativan daily (4) GERD (gastroesophageal reflux disease): Cont PPI daily (5) Dizziness: Orthostatic BPs were normal Presumed 2nd to sinus tachycardia Notes For Next Care Provider Patient will have f/u with [facility] Cardiology in the next few weeks post-discharge Medication Changes From Visit Metoprolol tartrate 25mg BID added during this brief stay Admission HPI Per Admitting Provider The patient is a 48-year-old female with a past medical history including heart palpitations, sinus tachycardia, TMJ, migraines, generalized anxiety disorder, and GERD. She presents to the emergency department with worsening intensity and duration of palpitations with noted increased heart rate up to 150, averaging every other day. Discharge Exam gen - NAD, looks well neck - no JVD heart - RRR, s1 s2, no murmur vascular - radial pulses 2+ b/l lungs - CTA b/l abd - soft NT ND BS+ ext - no edema, pulses 2+ b/l Discharge Plan Discharge Items Patient Disposition: Home - Self-Care Reason For Visit: tachycardia Discharge Diagnosis: 1. sinus tachycardia - cause uncertain; improved with metoprolol 2. dizziness - likely due to #1 Activity: As commented below Activity Comment: light activities only for now Lifting: Gradually increase as tolerated Non-emergency contact: Primary Care Provider and Roll Inspector Call non-emergency contact if: you have any medication questions and your symptoms worsen Follow-up/Referrals: Power Cline PA-C [Physician Hospice Chaplain] - (Mr Cline's office will be contacting you with a follow-up appointment date/time) Alisha Mccurdy MD [Primary Care Provider] - (1 week) Diet: Regular Addtl Attending Provider Instructions: Ms Wolf, Davey were hospitalized due to having episodes of tachycardia. Your tachycardia was due to sinus tachycardia (normal rhythm, but at a faster heart rate). We did not see abnormal heart rhythms such as atrial tachycardia, atrial fibrillation, atrial flutter, SVT, or ventricular tachycardia. The exact cause of your sinus tachycardia was uncertain. Common causes of sinus tachycardia include severe anemia, overactive thyroid gland (hyperthyroidism), pain, anxiety, blood clots of the lungs, medication side effects, too much caffeine in the diet, etc. Sinus tachycardia is also a normal response to vigorous exercise. Your echocardiogram showed a normal anatomical heart. Your blood work for the heart was normal (no heart attack found). Your telemetry heart monitoring while here was normal. COVID testing was negative. Your blood pressures while standing were normal. Thyroid blood work was normal. Your blood counts were normal. [facility] saw you in consult and recommended metoprolol twice daily for the tachycardia. Since starting this your tachycardia is much better. Recommendations - 1. metoprolol 25mg twice daily, first dose tonight upon return home 2. continue to monitor your pulse (heart rate) at home using your FitBit as previous 3. activities = ok to go on walks, use your Peloton (if the work-out is light), and may weight lift using light weights; until you see cardiology would avoid heavy exertional activity (example - the highly intense Peloton work-outs) Return to [facility] if - * your heart rate is 130 or higher sustained for longer than 15-20 minutes * you have chest pains or shortness of breath * you have severe dizziness, lightheadedness, or feel like you may pass out * any other concerns It was our pleasure to care for you! Pending Studies at Discharge: No Stand-Alone Forms: [facility] Sm[facility] Medications and DC Order Prescriptions: New metoprolol tartrate 25 mg Tablet 25 mg PO BID Qty: 60 2RF Continued omeprazole 20 mg capsule,delayed release(DR/EC) 20 mg PO DAILY Qty: 90 4RF Rx Instructions: 1 tab daily 30-min prior to first meal bupropion HCl 150 mg tablet extended release 24 hr 300 mg PO QPM Rx Instructions: Patient stated she only takes 300 MG lorazepam 0.5 mg tablet 1 mg PO DAILY Discharge Orders: Discharge Order (Routine); Ordered 10/16/23 Ordered By: Elvin Hester Admission Data Admit Date/Time: 10/16/23 00:34 Attending Provider: Elvin Hester Admit Provider: Hany Singh Primary Care Provider: Alisha Mccurdy Other Providers: Soto Wahl; Hany Singh Other Interventions: Discharge Summary Assessment (RN) Last Done: 10/16/23 17:06 Hospital Stay Data Consultations [facility] Procedures Performed Echocardiogram - * EF 60-65% * normal LV wall motion * normal RV structure & function * normal LA & RA * normal valve function Diagnostic Imagining Performed Chest X-Ray 10/15/23 21:00 XR chest 1V not portable CLINICAL HISTORY: Chest pain, nonspecific COMPARISON STUDY: Chest radiograph January 03, 2023. FINDINGS: Lung volumes are normal. Lungs are clear. There is no pneumothorax or pleural effusion. Cardiac size is normal. Mediastinal contours are normal. There is no evidence for pulmonary edema. IMPRESSION: No acute cardiopulmonary findings. ACT 112: Negative or not required by law. Electronically signed by: Modesto Valera M.D. 10/16/2023 6:53 AM Pending Results Patient Have Any Pending Studies at Discharge: No Discharge Instructions Given to Patient (Per Discharging Provider) Davey Rajan were hospitalized due to having episodes of tachycardia. Your tachycardia was due to sinus tachycardia (normal rhythm, but at a faster heart rate). We did not see abnormal heart rhythms such as atrial tachycardia, atrial fibrillation, atrial flutter, SVT, or ventricular tachycardia. The exact cause of your sinus tachycardia was uncertain. Common causes of sinus tachycardia include severe anemia, overactive thyroid gland (hyperthyroidism), pain, anxiety, blood clots of the lungs, medication side effects, too much caffeine in the diet, etc. Sinus tachycardia is also a normal response to vigorous exercise. Your echocardiogram showed a normal anatomical heart. Your blood work for the heart was normal (no heart attack found). Your telemetry heart monitoring while here was normal. COVID testing was negative. Your blood pressures while standing were normal. Thyroid blood work was normal. Your blood counts were normal. [facility] saw you in consult and recommended metoprolol twice daily for the tachycardia. Since starting this your tachycardia is much better. Recommendations - 1. metoprolol 25mg twice daily, first dose tonight upon return home 2. continue to monitor your pulse (heart rate) at home using your FitBit as previous 3. activities = ok to go on walks, use your Peloton (if the work-out is light), and may weight lift using light weights; until you see cardiology would avoid heavy exertional activity (example - the highly intense Peloton work-outs) Return to [facility] if - * your heart rate is 130 or higher sustained for longer than 15-20 minutes * you have chest pains or shortness of breath * you have severe dizziness, lightheadedness, or feel like you may pass out * any other concerns It was our pleasure to care for you! Total Time Total Time Spent Total Time Spent (In Minutes): 25 Coding Level of Care Code None Diagnoses Sinus tachycardia R00.0 Heart palpitations R00.2 Depression with anxiety F41.8 GERD (gastroesophageal reflux disease) K21.9 Dizziness R42
[2023-10-16] MEDS ORDERED: buPROPion XL 300 MG TABCR PO SCH (21:00)
== END 2023-10-16 17:19 | disposition home or self-care (01) ==
LOC: 2S 20:54 → ED 20:54 → SUATTDRO 10-16 00:34 → 2S 10-16 01:52